=== PATIENT | female | born 1980 | race African-American/Black ===

== ENCOUNTER 2017-03-18 07:53 | Emergency (ER) | payer MEDICAID, OTHER ==
[~2017-03-18] VITALS: Ht 152.4 cm; Wt 104.3 kg
[2017-03-18 07:59] VITALS: BP 152/81
== END 2017-03-18 10:16 | disposition home or self-care (01) ==
LOC: ER 07:53
DX: S93.602A Unspecified sprain of left foot, initial encounter (principal); X50.9XXA Other and unspecified overexertion or strenuous movements or postures, initial encounter; Y93.01 Activity, walking, marching and hiking; Y92.89 Other specified places as the place of occurrence of the external cause; Y99.8 Other external cause status
CPT/HCPCS: 73630

== ENCOUNTER 2019-11-15 11:19 | Emergency (ER) | payer MEDICAID, OTHER ==
[~2019-11-15] VITALS: Ht 152.4 cm; Wt 105.7 kg
[2019-11-15 11:54] LABS: Basophils # (auto) 0.1 10 ^3/uL (0-0.2); Basophils % (auto) 0.6 % (0.0-2.0); Eosinophils # (auto) 0 10 ^3/uL (0-0.8); Hematocrit 42.5 % (36.0-46.0); Hemoglobin 13.4 g/dL (12.2-16.2); Lymphocytes # (auto) 1.4 10 ^3/uL (0.4-5.4); Mean Corpuscular Hemoglobin 24.6 pg (28.0-32.0); Mean Corpuscular Hgb Conc. 31.5 g/dL (32.0-36.0); Red Blood Cells 5.45 10^6/uL (4.0-5.20)
[2019-11-15 11:56] LABS: Eosinophils % (auto) 0.2 % (0.0-7.0); Lymphocytes % (auto) 11.4 % (10.0-50.0); Mean Corpuscular Volume 77.9 fL (80.0-100.0); Monocytes # (auto) 0.4 10 ^3/uL (0-1.3); Monocytes % (auto) 3.6 % (0.0-12.0); Neutrophils % (auto) 84.2 % (37.0-80.0); Platelet Count (auto) 348 10^3/uL (140-450); Red Cell Distribution Width 15.3 % (11.8-14.3); White Blood Cell 11.9 10^3/uL (4.4-10.8)
[2019-11-15 12:15] LABS: Albumin 3.4 g/dL (3.4-5.0); Calcium 9.1 mg/dL (8.5-10.1)
[2019-11-15 12:18] LABS: BUN/Creatinine Ratio 9.3; Bilirubin, Total 0.4 mg/dL (0.2-1.0); Total Protein 8.3 g/dL (6.4-8.2)
[2019-11-15] MEDS ORDERED: SODIUM CHLORIDE 0.9% 1,000 ML IVB ONE (12:32)
[2019-11-15] MEDS ORDERED: PROMETHAZINE HCL 25 MG/ML 1ML IV PRN (12:45)
[2019-11-15 13:29] LABS: Urine Bacteria NONE SEEN /hpf (None Seen); Urine Blood Negative /uL (Negative); Urine Specific Gravity 1.034 (1.001-1.035); Urine WBC <1 /hpf (0 - 5)
[2019-11-15] MEDS ORDERED: SODIUM CHLORIDE 0.9% 1,000 ML IV ONE (14:30)
[2019-11-15] MEDS ORDERED: InsuLIN REG 1unit/0.01ml Soln (100units/ml) IV ONE (15:00)
[2019-11-15] MEDS ORDERED: PANTOPRAZOLE 40 MG TAB PO ONE (15:45)
[2019-11-15 17:54] VITALS: BP 117/75
== END 2019-11-15 17:54 | disposition home or self-care (01) ==
LOC: ER 11:19
DX: E11.65 Type 2 diabetes mellitus with hyperglycemia (principal); K29.00 Acute gastritis without bleeding; K76.0 Fatty (change of) liver, not elsewhere classified
CPT/HCPCS: 36415; 74176; 80053; 81001; 81025; 82962; 83690; 83735; 85025; 96361; 96374; 96375; 99285; J1815; J2550

== ENCOUNTER → 2022-08-06 | Emergency (ER) | payer MEDICAID ==
[~2022-08-06] VITALS: Ht 175.3 cm; Wt 115.0 kg
[~2022-08-06] MED LIST: IOHEXOL 350 MG/ML 100ML IJ ONE; LORazepam 0.5 MG TAB PO ONE; LORazepam 2MG/ML-1ML VIAL IV ONE
[2022-08-06 22:13] LABS: Basophils # (auto) 0.1 10 ^3/uL (0-0.2); Monocytes # (auto) 0.7 10 ^3/uL (0-1.3); Nucleated Red Blood Cells % 0.1 %
[2022-08-06 22:15] LABS: Basophils % (auto) 0.8 % (0.0-2.0); Eosinophils # (auto) 0.1 10 ^3/uL (0-0.8); Hematocrit 36.1 % (36.0-46.0); Hemoglobin 11.3 g/dL (12.2-16.2); Lymphocytes # (auto) 3.1 10 ^3/uL (0.4-5.4); Lymphocytes % (auto) 24.9 % (10.0-50.0); Mean Corpuscular Hemoglobin 21.9 pg (28.0-32.0); Mean Corpuscular Hgb Conc. 31.4 g/dL (32.0-36.0); Mean Corpuscular Volume 69.9 fL (80.0-100.0); Monocytes % (auto) 5.2 % (0.0-12.0); Neutrophils # (auto) 8.5 10 ^3/uL (1.6-8.6); Neutrophils % (auto) 68.1 % (37.0-80.0); Red Blood Cells 5.16 10^6/uL (4.0-5.20); Red Cell Distribution Width 18.7 % (11.8-14.3); White Blood Cell 12.4 10^3/uL (4.4-10.8)
[2022-08-06 22:30] LABS: INR 0.95 (0.9-1.15)
[2022-08-06 22:39] LABS: Albumin 3.6 g/dL (3.4-5.0); Calcium 8.9 mg/dL (8.5-10.1); Magnesium 2.3 mg/dL (1.6-2.6); Potassium 3.6 mmol/L (3.5-5.1)
[2022-08-06 22:44] LABS: BUN/Creatinine Ratio 11.3 (10.0-20.0); Bilirubin, Total 0.3 mg/dL (0.2-1.0); Phosphorus 1.5 mg/dL (2.5-4.90); Total Protein 8.2 g/dL (6.4-8.2)
[2022-08-06 23:33] VITALS: BP 144/83
== END | disposition short-term general hospital (02) ==
LOC: EDBD 21:32 → ER 21:32 → EDUNIT# 21:32
DX: I63.9 Cerebral infarction, unspecified (principal); R55 Syncope and collapse; R10.2 Pelvic and perineal pain
CPT/HCPCS: 36415; 70496; 71045; 80053; 82962; 83690; 83735; 84100; 84484; 84702; 85025; 85610; 93005; 96374; 99291; J2060; Q9967